=== PATIENT | male | born 1950 | race Caucasian/White ===

== ENCOUNTER 2016-10-04 04:53 | Emergency (ER) | payer OTHER ==
[~2016-10-04] VITALS: Ht 177.8 cm; Wt 75.7 kg
[~2016-10-04 04:53] MED LIST: LORTAB 5-325 M1 EACH PO; MOTRIN600 MG PO; SKELAXIN800 MG PO
[2016-10-04 05:43] LABS: HEMATOCRIT 42.3 % (38.0-50.0); MCH 31.3 PG (29.0-34.0); MCHC 34.5 G/DL (30.0-36.0); MCV 90.8 FL (86-99); MEAN PLAT.VOLUME 10.2 uM^3 (9.0-12.4); PLATELET COUNT 360 K/uL (156-360); RBC DIS.WIDTH-CV 14.2 % (11.8-14.6); RBC DIS.WIDTH-SD 46.1 % (39-53); RED BLOOD COUNT 4.66 M/uL (4.00-5.50); WHITE BLOOD COUNT 12.3 K/uL (4.1-10.2)
[2016-10-04 05:53] LABS: D-DIMER ELISA 0.85 mg/L FEU (< 0.57)
[2016-10-04 05:55] LABS: CHLORIDE 105 mEq/L (99-109); POTASSIUM 3.8 mEq/L (3.7-5.4); SODIUM 138 mEq/L (136-147)
[2016-10-04 05:56] LABS: GLUCOSE 119 mg/dL (70-99)
[2016-10-04 05:58] LABS: ANION GAP 9 MEQ/L (2-14)
[2016-10-04 06:00] LABS: GFR ESTIMATE (CALCULATED) > 59 mL/min/
[2016-10-04 06:01] LABS: UREA NITROGEN (BUN) 17 mg/dL (9-23)
[2016-10-04 06:03] LABS: CREATINE KINASE 337 IU/L (1-294); TOTAL CK 337 IU/L (1-294)
[2016-10-04 06:08] LABS: CK-MB 2.5 ng/mL (0.0-4.9)
[2016-10-04] MEDS ORDERED: ULTRAM50 MG PO (06:45)
[2016-10-04] MEDS ORDERED: ROPINIROLE HCL1 MG PO (06:45)
[2016-10-04 09:22] VITALS: BP 106/71
== END 2016-10-04 09:25 | disposition home or self-care (01) ==
LOC: EME 04:53
PROVIDERS: Emergency Medicine
DX: G62.9 Polyneuropathy, unspecified (principal); F17.200 Nicotine dependence, unspecified, uncomplicated
CPT/HCPCS: 71275; 74177; 80048; 82550; 82553; 85027; 85379; 93970; 99281; 99285; J2270; J7030

== ENCOUNTER 2016-10-05 18:06 | Inpatient (IN) | payer OTHER ==
[~2016-10-05] VITALS: Ht 177.8 cm; Wt 75.0 kg
[~2016-10-05 18:06] MED LIST changes: +ROPINIROLE HCL1 MG PO; +ULTRAM50 MG PO
[2016-10-05 19:07] LABS: HEMATOCRIT 42.2 % (38.0-50.0); MCH 31.1 PG (29.0-34.0); MCHC 33.6 G/DL (30.0-36.0); MCV 92.5 FL (86-99); MEAN PLAT.VOLUME 10.3 uM^3 (9.0-12.4); PLATELET COUNT 306 K/uL (156-360); RBC DIS.WIDTH-CV 14.2 % (11.8-14.6); RBC DIS.WIDTH-SD 46.3 % (39-53); RED BLOOD COUNT 4.56 M/uL (4.00-5.50)
[2016-10-05 19:13] LABS: CHLORIDE 109 mEq/L (99-109); SODIUM 139 mEq/L (136-147)
[2016-10-05 19:15] LABS: GLUCOSE 112 mg/dL (70-99)
[2016-10-05 19:16] LABS: ANION GAP 6 MEQ/L (2-14)
[2016-10-05 19:17] LABS: TOTAL BILIRUBIN 0.2 mg/dL (0.0-1.0)
[2016-10-05 19:18] LABS: SERUM ETHYL ALCOHOL < 10 mg/dL
[2016-10-05 19:19] LABS: ALKALINE PHOSPHATASE 94 IU/L (3-129); GFR ESTIMATE (CALCULATED) > 59 mL/min/
[2016-10-05 19:20] LABS: UREA NITROGEN (BUN) 11 mg/dL (9-23)
[2016-10-05 20:23] LABS: ADD MIUA? YES; BILIRUBIN NEGATIVE; BLOOD SMALL; COLOR YELLOW ((YELLOW)); GLUCOSE (STRIP) NEGATIVE; KETONES NEGATIVE; LEUKOCYTES SMALL; NITRITE NEGATIVE; PROTEIN (STRIP) NEGATIVE; SPECIFIC GRAVITY 1.011 (1.000-1.030); UROBILINOGEN 0.2 MG/DL (0.2-1.0)
[2016-10-05 20:51] LABS: BACTERIA NONE SEEN /HPF; EPITHELIAL CELLS RARE /HPF; MUCUS TRACE /LPF; UCUL ADDED? NO; UNCLASSIFIED CRYSTALS 1+ /HPF; WHITE BLOOD CELLS 15-20 /HPF (0-5)
[2016-10-05 20:53] LABS: CASTS NONE SEEN /LPF; CRYSTALS NONE SEEN
[2016-10-06 01:07] LABS: CREATINE KINASE 339 IU/L (1-294); TOTAL CK 339 IU/L (1-294)
[2016-10-06 01:15] LABS: GLOBULINS 3.6 G/DL (2.3-3.5)
[2016-10-06 01:16] LABS: CK-MB 2.9 ng/mL (0.0-4.9)
[2016-10-06 02:20] LABS: LACTATE DEHYDROGENASE 246 IU/L (20-246)
[2016-10-06 06:49] LABS: HEMATOCRIT 40.5 % (38.0-50.0); MCH 30.8 PG (29.0-34.0); MCHC 33.6 G/DL (30.0-36.0); MCV 91.6 FL (86-99); MEAN PLAT.VOLUME 10.3 uM^3 (9.0-12.4); PLATELET COUNT 289 K/uL (156-360); RBC DIS.WIDTH-CV 14.1 % (11.8-14.6); RED BLOOD COUNT 4.42 M/uL (4.00-5.50); WHITE BLOOD COUNT 8.6 K/uL (4.1-10.2)
[2016-10-06 06:57] LABS: CHLORIDE 109 mEq/L (99-109); SODIUM 139 mEq/L (136-147)
[2016-10-06 06:59] LABS: GLUCOSE 100 mg/dL (70-99)
[2016-10-06 07:00] LABS: ANION GAP 10 MEQ/L (2-14)
[2016-10-06 07:01] LABS: TOTAL BILIRUBIN 0.2 mg/dL (0.0-1.0)
[2016-10-06 07:02] LABS: ALKALINE PHOSPHATASE 89 IU/L (3-129)
[2016-10-06 07:03] LABS: GFR ESTIMATE (CALCULATED) > 59 mL/min/
[2016-10-06 07:04] LABS: UREA NITROGEN (BUN) 8 mg/dL (9-23)
[2016-10-06 08:53] VITALS: BP 149/88
[2016-10-06 12:21] LABS: HBSG INDEX 0.19
[2016-10-06 12:22] LABS: HPCA INDEX 0.29
[2016-10-06 12:23] LABS: ANTI-HEPATITIS A VIRUS (IGM) Nonreactive; HAV INDEX 0.15
[2016-10-06 12:24] LABS: ANTI-HEPATITIS B CORE (IGM) Nonreactive; HBC IgM INDEX 0.08
[2016-10-06 13:41] LABS: ALBUMIN 3.55 G/DL (3.6-4.9); ALBUMIN PERCENT 51.4 %; ALPHA-1 PERCENT 4.4 %; ALPHA-2 GLOBULIN 0.87 G/DL (0.45-0.85); ALPHA-2 PERCENT 12.6 %; BETA PERCENT 11.7 %; GAMMA PERCENT 19.9 %
[2016-10-06 14:22] LABS: LYME DISEASE SEROLOGY SCREEN NEGATIVE (NEGATIVE)
[2016-10-06 16:21] VITALS: BP 148/85
[2016-10-06 22:40] VITALS: BP 160/96
[2016-10-07] VITALS (7 sets, daily range): BP systolic 118–148; BP diastolic 67–89
[2016-10-07 19:32] LABS: APPEARANCE CLEAR/COLORLESS; RED CELL AREA COUNTED 18; RED CELL COUNT 2 /MM^3 (0-1); RED CELL DILUTION 1; WBC AREA COUNTED 18; WBC DILUTION 1; WHITE CELL COUNT 1 /MM^3 (0-5); WHITE CELL RAW COUNT 2
[2016-10-07 19:52] LABS: CSF EOSINOPHILS 0 % (0-25); MONO RAW COUNT 3; MONONUCLEAR WBC'S 100 % (50-90); POLYNUCLEAR WBC'S 0 % (0-3)
[2016-10-07 23:23] LABS: ANTI-SMOOTH MUSCLE (Actin)+ <20 U (<20)
[2016-10-08 08:24] VITALS: BP 133/85
[2016-10-08 16:06] VITALS: BP 132/82
[2016-10-08 23:58] VITALS: BP 150/82
[2016-10-09 07:41] VITALS: BP 145/89
[2016-10-09 09:35] LABS: HEMATOCRIT 42.7 % (38.0-50.0); MCH 32.3 PG (29.0-34.0); MCHC 34.9 G/DL (30.0-36.0); MCV 92.4 FL (86-99); MEAN PLAT.VOLUME 10.8 uM^3 (9.0-12.4); PLATELET COUNT 278 K/uL (156-360); RBC DIS.WIDTH-CV 14.5 % (11.8-14.6); RED BLOOD COUNT 4.62 M/uL (4.00-5.50)
[2016-10-09 09:49] LABS: ANION GAP 7 MEQ/L (2-14); CHLORIDE 101 MEQ/L (99-109); GFR ESTIMATE (CALCULATED) > 59 mL/min/; GLUCOSE 105 mg/dL (70-99); POTASSIUM 4.3 MEQ/L (3.7-5.4); SAMPLE HEMOLYSIS CHECK 0; SAMPLE ICTERIC CHECK 0; SAMPLE LIPEMIA CHECK 0; SODIUM 136 MEQ/L (136-147); UREA NITROGEN (BUN) 14 mg/dL (9-23)
[2016-10-09 14:19] LABS: Neutrophil Cytoplasmic Aby Negative (Negative)
[2016-10-09 15:14] VITALS: BP 133/67
[2016-10-10 00:05] VITALS: BP 135/93
[2016-10-10 07:25] VITALS: BP 126/60
[2016-10-10 15:00] VITALS: BP 139/80
[2016-10-10 23:57] VITALS: BP 136/81
[2016-10-11 07:44] VITALS: BP 140/82
[2016-10-11 11:54] VITALS: BP 116/84
[2016-10-11 16:00] VITALS: BP 129/79
[2016-10-11 23:53] VITALS: BP 136/89
[2016-10-12 08:35] VITALS: BP 123/85
[2016-10-12 09:28] LABS: EOSINOPHIL (%) 1.8 % (0-5); EOSINOPHIL COUNT 0.1 K/uL (0-0.3); HEMATOCRIT 45.6 % (38.0-50.0); LYMPHOCYTE COUNT 1.4 K/uL (1.0-2.8); MCH 30.9 PG (29.0-34.0); MCHC 33.1 G/DL (30.0-36.0); MCV 93.3 FL (86-99); MEAN PLAT.VOLUME 10.5 uM^3 (9.0-12.4); MONOCYTE (%) 11.2 % (3-12); MONOCYTE COUNT 0.4 K/uL (0-0.8); NEUTROPHIL (%) 49.7 % (45-76); NEUTROPHIL COUNT 1.9 K/uL (1.8-6.4); PLATELET COUNT 229 K/uL (156-360); RBC DIS.WIDTH-CV 15.2 % (11.8-14.6); RBC DIS.WIDTH-SD 51.5 % (39-53); RED BLOOD COUNT 4.89 M/uL (4.00-5.50); WHITE BLOOD COUNT 3.8 K/uL (4.1-10.2)
[2016-10-12 10:32] LABS: ANION GAP 8 MEQ/L (2-14); CHLORIDE 99 MEQ/L (99-109); POTASSIUM 4.1 MEQ/L (3.7-5.4); SAMPLE HEMOLYSIS CHECK 0; SAMPLE ICTERIC CHECK 0; SAMPLE LIPEMIA CHECK 0; SODIUM 136 MEQ/L (136-147)
[2016-10-12 10:46] LABS: GFR ESTIMATE (CALCULATED) > 59 mL/min/; GLUCOSE 83 mg/dL (70-99); UREA NITROGEN (BUN) 17 mg/dL (9-23)
[2016-10-12 12:42] VITALS: BP 122/80
[2016-10-12] MEDS ORDERED: TYLENOL REGULA325 MG PO (15:23)
[2016-10-12] MEDS ORDERED: GABAPENTIN300 MG PO (15:23)
[2016-10-12] MEDS ORDERED: NICOTINE PATCH1 EAC2 TD (15:23)
[2016-10-12] MEDS ORDERED: ENDOCET 5-3251 EACH PO (15:27)
[2016-10-12] MEDS ORDERED: COLACE100 MG PO (15:27)
== END 2016-10-12 17:55 | DRG 96 ==
LOC: EME → EDBD 18:06 → EDOF 23:03 → 5WEST 23:03 → 5SOUTH 10-07 12:26
PROVIDERS: Emergency Medicine; Hospitalist; Internal Medicine; Psychiatry & Neurology Neurology; Student in an Organized Health Care Education/Training Program
DX: G61.0 Guillain-Barre syndrome (principal); R53.1 Weakness; I71.4 Abdominal aortic aneurysm, without rupture; F17.210 Nicotine dependence, cigarettes, uncomplicated
CPT/HCPCS: 70450; 70551; 72148; 80048; 80053; 80074; 81003; 82550; 82553; 82607; 82945; 83090 90; 83516 90; 83605; 83615; 83874 90; 83921 90; 84157; 84165; 84443; 85025; 85027; 86021 90; 86038; 86618; 87040; 87070; 87205; 89051; 97530 GO; 97530 GP; 99281; 99285; G0103; G0378; G0480; G8978 GP CM; G8979 GP CK; G8987 GO CL; G8988 GO CK; J0696; J1566; J1644; J2270; J7030; J7050

== ENCOUNTER 2017-03-24 20:08 | Inpatient (IN) | payer OTHER ==
[~2017-03-24] VITALS: Ht 152.4 cm; Wt 92.4 kg
[~2017-03-24 20:08] MED LIST changes: +COLACE100 MG PO; +ENDOCET 5-3251 EACH PO; +GABAPENTIN300 MG PO; +NICOTINE PATCH1 EAC2 TD; +TYLENOL REGULA325 MG PO
[2017-03-24 21:48] LABS: EOSINOPHIL (%) 1.6 % (0-5); EOSINOPHIL COUNT 0.2 K/uL (0-0.3); IMMATURE GRANULOCYTE (%) 0.4 % (0.0-0.7); IMMATURE GRANULOCYTE COUNT 0.1 K/uL; INSTRUMENT ABS NEUTROPHIL CT 8.6 K/uL; LYMPHOCYTE COUNT 2.7 K/uL (1.0-2.8); MCH 31.7 PG (29.0-34.0); MCHC 34.1 G/DL (30.0-36.0); MCV 92.9 FL (86-99); MEAN PLAT.VOLUME 11.4 uM^3 (9.0-12.4); MONOCYTE (%) 7.5 % (3-12); MONOCYTE COUNT 0.9 K/uL (0-0.8); NEUTROPHIL (%) 68.9 % (45-76); NEUTROPHIL COUNT 8.6 K/uL (1.8-6.4); PLATELET COUNT 192 K/uL (156-360); RBC DIS.WIDTH-CV 14.4 % (11.8-14.6); RBC DIS.WIDTH-SD 49.1 % (39-53); RED BLOOD COUNT 4.95 M/uL (4.00-5.50); WHITE BLOOD COUNT 12.5 K/uL (4.1-10.2)
[2017-03-24 22:00] LABS: CHLORIDE 95 mEq/L (99-109); POTASSIUM 3.2 mEq/L (3.7-5.4); SODIUM 137 mEq/L (136-147)
[2017-03-24 22:04] LABS: TOTAL BILIRUBIN 0.8 mg/dL (0.0-1.0)
[2017-03-24 22:05] LABS: ALKALINE PHOSPHATASE 95 IU/L (3-129)
[2017-03-24 22:06] LABS: GFR ESTIMATE (CALCULATED) 34 mL/min/
[2017-03-24 22:07] LABS: UREA NITROGEN (BUN) 23 mg/dL (9-23)
[2017-03-24 22:09] LABS: LIPASE 7 U/L (1.0-51.0); TROP-I INTERPRETATION NEGATIVE; TROPONIN-I 0.05 ng/mL (0.0-0.30)
[2017-03-24 22:42] LABS: ADD MIUA? YES; BILIRUBIN NEGATIVE; BLOOD MODERATE; COLOR YELLOW ((YELLOW)); GLUCOSE (STRIP) NEGATIVE; KETONES NEGATIVE; LEUKOCYTES LARGE; NITRITE NEGATIVE; PROTEIN (STRIP) 100; SPECIFIC GRAVITY 1.015 (1.000-1.030); UROBILINOGEN 0.2 MG/DL (0.2-1.0)
[2017-03-24 22:54] LABS: GLUCOSE 106 mg/dL (70-99)
[2017-03-24 22:56] LABS: ANION GAP 8 MEQ/L (2-14)
[2017-03-24 23:07] LABS: BACTERIA 3+ /HPF; CASTS NONE SEEN /LPF; CRYSTALS NONE SEEN; EPITHELIAL CELLS 1+ /HPF; MUCUS RARE /LPF; RED BLOOD CELLS 0-5 /HPF (0-5); WHITE BLOOD CELLS TNTC /HPF (0-5)
[2017-03-24] MEDS ORDERED: TYLENOL EXTRA500 MG PO (23:32)
[2017-03-25 01:27] VITALS: BP 124/75
[2017-03-25 06:54] LABS: EOSINOPHIL (%) 2.1 % (0-5); EOSINOPHIL COUNT 0.2 K/uL (0-0.3); HEMATOCRIT 38.6 % (38.0-50.0); IMMATURE GRANULOCYTE (%) 0.4 % (0.0-0.7); INSTRUMENT ABS NEUTROPHIL CT 6.2 K/uL; LYMPHOCYTE COUNT 2.3 K/uL (1.0-2.8); MCH 32.4 PG (29.0-34.0); MCHC 34.2 G/DL (30.0-36.0); MCV 94.6 FL (86-99); MEAN PLAT.VOLUME 11.5 uM^3 (9.0-12.4); MONOCYTE (%) 7.7 % (3-12); MONOCYTE COUNT 0.7 K/uL (0-0.8); NEUTROPHIL (%) 65.6 % (45-76); NEUTROPHIL COUNT 6.2 K/uL (1.8-6.4); PLATELET COUNT 157 K/uL (156-360); RBC DIS.WIDTH-CV 14.6 % (11.8-14.6); RBC DIS.WIDTH-SD 51.1 % (39-53); RED BLOOD COUNT 4.08 M/uL (4.00-5.50); WHITE BLOOD COUNT 9.5 K/uL (4.1-10.2)
[2017-03-25 07:25] LABS: ANION GAP 6 MEQ/L (2-14); CHLORIDE 100 MEQ/L (99-109); GFR ESTIMATE (CALCULATED) 40 mL/min/; GLUCOSE 100 mg/dL (70-99); POTASSIUM 3.2 MEQ/L (3.7-5.4); SAMPLE HEMOLYSIS CHECK 0; SAMPLE ICTERIC CHECK 0; SAMPLE LIPEMIA CHECK 0; SODIUM 138 MEQ/L (136-147); UREA NITROGEN (BUN) 26 mg/dL (9-23)
[2017-03-25 07:43] VITALS: BP 117/63
[2017-03-25 09:38] LABS: CREATINE KINASE 85 IU/L (1-294)
[2017-03-25 10:48] LABS: MAGNESIUM 1.7 mg/dl (1.3-2.7)
[2017-03-25 11:17] LABS: INTACT PARATHYROID HORMONE 8 pg/mL (10-69)
[2017-03-25 12:02] VITALS: BP 118/58
[2017-03-25 14:15] LABS: URINE TOTAL PROTEIN 20 MG/DL (0-10)
[2017-03-25 15:15] VITALS: BP 116/60
[2017-03-25 20:29] VITALS: BP 106/68
[2017-03-26] VITALS (7 sets, daily range): BP systolic 110–127; BP diastolic 55–76
[2017-03-26 06:45] LABS: ANION GAP 3 MEQ/L (2-14); CHLORIDE 108 MEQ/L (99-109); GFR ESTIMATE (CALCULATED) 40 mL/min/; GLUCOSE 95 mg/dL (70-99); POTASSIUM 3.7 MEQ/L (3.7-5.4); SAMPLE HEMOLYSIS CHECK 0; SAMPLE ICTERIC CHECK 0; SAMPLE LIPEMIA CHECK 0; SODIUM 141 MEQ/L (136-147); UREA NITROGEN (BUN) 28 mg/dL (9-23)
[2017-03-27 05:44] VITALS: BP 138/77
[2017-03-27 06:26] LABS: HEMATOCRIT 33.9 % (38.0-50.0); MCH 33.6 PG (29.0-34.0); MCHC 35.1 G/DL (30.0-36.0); MCV 95.8 FL (86-99); MEAN PLAT.VOLUME 11.4 uM^3 (9.0-12.4); PLATELET COUNT 151 K/uL (156-360); RBC DIS.WIDTH-CV 14.7 % (11.8-14.6); RBC DIS.WIDTH-SD 52.1 % (39-53); RED BLOOD COUNT 3.54 M/uL (4.00-5.50); WHITE BLOOD COUNT 7.2 K/uL (4.1-10.2)
[2017-03-27 07:16] VITALS: BP 99/79
[2017-03-27 07:40] LABS: ALKALINE PHOSPHATASE 73 IU/L (3-129); ANION GAP 7 MEQ/L (2-14); ANION GAP 8 MEQ/L (2-14); CHLORIDE 109 MEQ/L (99-109); CHLORIDE 110 MEQ/L (99-109); GFR ESTIMATE (CALCULATED) 43 mL/min/; GFR ESTIMATE (CALCULATED) 46 mL/min/; GLUCOSE 94 mg/dL (70-99); GLUCOSE 95 mg/dL (70-99); POTASSIUM 3.3 MEQ/L (3.7-5.4); SAMPLE HEMOLYSIS CHECK 0; SAMPLE ICTERIC CHECK 0; SAMPLE LIPEMIA CHECK 0; SODIUM 141 MEQ/L (136-147); TOTAL BILIRUBIN 0.3 MG/DL (0.0-1.0); UREA NITROGEN (BUN) 24 mg/dL (9-23); UREA NITROGEN (BUN) 25 mg/dL (9-23)
[2017-03-27 08:23] LABS: MAGNESIUM 1.7 mg/dl (1.3-2.7)
[2017-03-27 16:07] VITALS: BP 104/68
[2017-03-27 23:23] VITALS: BP 120/61
[2017-03-28 05:58] LABS: HEMATOCRIT 29.5 % (38.0-50.0); MCH 33.4 PG (29.0-34.0); MCHC 34.9 G/DL (30.0-36.0); MCV 95.8 FL (86-99); MEAN PLAT.VOLUME 11.9 uM^3 (9.0-12.4); PLATELET COUNT 130 K/uL (156-360); RBC DIS.WIDTH-CV 15.1 % (11.8-14.6); RED BLOOD COUNT 3.08 M/uL (4.00-5.50); WHITE BLOOD COUNT 6.1 K/uL (4.1-10.2)
[2017-03-28 06:34] LABS: ALKALINE PHOSPHATASE 56 IU/L (3-129); ANION GAP 8 MEQ/L (2-14); CHLORIDE 109 MEQ/L (99-109); GFR ESTIMATE (CALCULATED) 46 mL/min/; GLUCOSE 98 mg/dL (70-99); POTASSIUM 3.3 MEQ/L (3.7-5.4); SAMPLE HEMOLYSIS CHECK 0; SAMPLE ICTERIC CHECK 0; SAMPLE LIPEMIA CHECK 0; SODIUM 139 MEQ/L (136-147); TOTAL BILIRUBIN 0.3 MG/DL (0.0-1.0); UREA NITROGEN (BUN) 22 mg/dL (9-23)
[2017-03-28 07:18] VITALS: BP 108/58
[2017-03-28 13:48] LABS: IFE GEL NO. 94-2
[2017-03-28 14:30] LABS: VITAMIN D 1,25 DIHYDROXY < 5.0 pg/mL (19.9-79.3)
[2017-03-28 16:19] VITALS: BP 110/60
[2017-03-28 23:38] VITALS: BP 117/72
[2017-03-29 06:47] LABS: ANION GAP 5 MEQ/L (2-14); CHLORIDE 112 MEQ/L (99-109); GFR ESTIMATE (CALCULATED) 54 mL/min/; GLUCOSE 100 mg/dL (70-99); POTASSIUM 3.9 MEQ/L (3.7-5.4); SAMPLE HEMOLYSIS CHECK 0; SAMPLE ICTERIC CHECK 0; SAMPLE LIPEMIA CHECK 0; SODIUM 140 MEQ/L (136-147); UREA NITROGEN (BUN) 17 mg/dL (9-23)
[2017-03-29 07:22] VITALS: BP 165/92
[2017-03-29 09:29] LABS: UR CREATININE CONCENTRATION 168.6 MG/DL
[2017-03-29 11:00] VITALS: BP 138/68
[2017-03-29 13:12] LABS: IFE GEL NO. CAPI
[2017-03-29 16:04] VITALS: BP 145/65
[2017-03-30 00:06] VITALS: BP 129/69
[2017-03-30 07:08] LABS: ANION GAP 7 MEQ/L (2-14); CHLORIDE 109 MEQ/L (99-109); GFR ESTIMATE (CALCULATED) > 59 mL/min/; GLUCOSE 93 mg/dL (70-99); POTASSIUM 3.9 MEQ/L (3.7-5.4); SAMPLE HEMOLYSIS CHECK 0; SAMPLE ICTERIC CHECK 0; SAMPLE LIPEMIA CHECK 0; SODIUM 140 MEQ/L (136-147); UREA NITROGEN (BUN) 13 mg/dL (9-23)
[2017-03-30 07:28] VITALS: BP 111/74
[2017-03-30 16:37] VITALS: BP 124/86
[2017-03-30] MEDS ORDERED: PREVACID SOLUTA30 MG PO (17:25)
[2017-03-30] MEDS ORDERED: HYDROCODON-ACE1 EAC7 PO (17:25)
[2017-03-30] MEDS ORDERED: VITAMIN D2000 UNI1 PO (17:25)
[2017-03-30] MEDS ORDERED: Tums,OsCal PO (17:25)
[2017-03-30] MEDS ORDERED: PHOSPHA250 MG PO (17:25)
[2017-03-31] MEDS ORDERED: HYDROCODON-ACE1 EAC7 PO (09:26)
== END 2017-03-30 18:57 | disposition home health service (06) | DRG 690 ==
LOC: EME 20:08 → 5EAST 23:40 → EDOF 23:40 → ENRESERV 23:55 → 5EAST 03-25 01:25
PROVIDERS: Emergency Medicine; Family Medicine; Internal Medicine
DX: N39.0 Urinary tract infection, site not specified (principal); N17.9 Acute kidney failure, unspecified; I95.9 Hypotension, unspecified; E83.52 Hypercalcemia; E83.39 Other disorders of phosphorus metabolism; R09.02 Hypoxemia; E87.6 Hypokalemia; E55.9 Vitamin D deficiency, unspecified; N20.0 Calculus of kidney; F17.210 Nicotine dependence, cigarettes, uncomplicated; R26.2 Difficulty in walking, not elsewhere classified; R26.81 Unsteadiness on feet; T50.3X1A Poisoning by electrolytic, caloric and water-balance agents, accidental (unintentional), initial encounter; E86.0 Dehydration; I71.9 Aortic aneurysm of unspecified site, without rupture; M19.90 Unspecified osteoarthritis, unspecified site; M79.606 Pain in leg, unspecified; R10.11 Right upper quadrant pain; R12 Heartburn
CPT/HCPCS: 71020; 72100; 74176; 78306; 78582; 80048; 80053; 80069; 81003; 81050; 82164 90; 82306; 82330; 82340; 82550; 82550 91; 82570; 82575; 82652; 83519 90; 83605; 83690; 83735; 83970; 84100; 84156; 84300; 84484; 85025; 85027; 85379; 86334; 86335; 87040; 93005; 94640; 94640 76; 94760; 94799; 97530 GO; 99202; 99281; 99284; A9503; A9539; A9540; J0456; J0610; J0692; J0696; J1644; J3475; J3489; J7030; J7040; J7050

== ENCOUNTER → 2017-07-19 | Outpatient (CLI) | payer OTHER ==
[~2017-07-19] MED LIST changes: +HYDROCODON-ACE1 EAC7 PO; +PHOSPHA250 MG PO; +PREVACID SOLUTA30 MG PO; +TYLENOL EXTRA500 MG PO; +Tums,OsCal PO; +VITAMIN D2000 UNI1 PO
== END | disposition home or self-care (01) ==
LOC: NUC 07-13 11:00
DX: S22.41XD Multiple fractures of ribs, right side, subsequent encounter for fracture with routine healing (principal); M17.0 Bilateral primary osteoarthritis of knee; M19.032 Primary osteoarthritis, left wrist; M19.072 Primary osteoarthritis, left ankle and foot; M19.071 Primary osteoarthritis, right ankle and foot
CPT/HCPCS: 78306; A9503